=== PATIENT | male | born 1965 | race African-American/Black ===

== ENCOUNTER 2016-06-28 10:21 | Observation (INO) | payer OTHER ==
[~2016-06-28] VITALS: Ht 175.3 cm; Wt 82.0 kg
[~2016-06-28 10:21] MED LIST: ASPIR-LOW81 MG PO; ATORVASTATIN CA40 MG PO; BACLOFEN10 MG PO; BUSPIRONE HCL10 MG PO; CYMBALTA20 MG PO; CYMBALTA60 MG PO; DAILY VALUE1 EACH PO; FLONASE16 G1 BOTH NARES; HYDROCODON-ACE1 EAC5 PO; IRON18 MG PO; IRON325 MG PO; KLONOPIN0.5 M1 PO; KLONOPIN1 MG PO; LEXAPRO10 MG PO; LOPRESSOR25 MG GT; LYRICA100 MG PO; LYRICA300 MG PO; MOBIC15 MG PO; MOBIC7.5 MG PO; NORCO 10/3251 TABLET PO; OPANA ER10 MG PO; OPANA ER5 MG PO; PRILOSEC OTC20 MG PO; REBIF44 MCG/0.5 IJ; TYLENOL PM1 CAPLET PO; XARELTO15 MG PO; XARELTO20 MG PO; ZOHYDRO ER10 M1 PO
[2016-06-28 11:18] LABS: EOSINOPHIL (%) 1.1 % (0-5); EOSINOPHIL COUNT 0.1 K/uL (0-0.3); HEMATOCRIT 37.9 % (38.0-50.0); IMMATURE GRANULOCYTE (%) 0.2 % (0.0-0.7); INSTRUMENT ABS NEUTROPHIL CT 2.5 K/uL; LYMPHOCYTE COUNT 3.6 K/uL (1.0-2.8); MCH 31.5 PG (29.0-34.0); MCV 95.5 FL (86-99); MEAN PLAT.VOLUME 10.5 uM^3 (9.0-12.4); MONOCYTE (%) 4.3 % (3-12); MONOCYTE COUNT 0.3 K/uL (0-0.8); NEUTROPHIL (%) 37.7 % (45-76); NEUTROPHIL COUNT 2.5 K/uL (1.8-6.4); PLATELET COUNT 245 K/uL (156-360); RBC DIS.WIDTH-CV 13.1 % (11.8-14.6); RBC DIS.WIDTH-SD 46.5 % (39-53); RED BLOOD COUNT 3.97 M/uL (4.00-5.50); WHITE BLOOD COUNT 6.5 K/uL (4.1-10.2)
[2016-06-28 11:29] LABS: D-DIMER ELISA 0.21 mg/L FEU (< 0.57)
[2016-06-28 11:32] LABS: CHLORIDE 108 mEq/L (99-109); POTASSIUM 5.1 mEq/L (3.7-5.4); SODIUM 139 mEq/L (136-147)
[2016-06-28 11:34] LABS: GLUCOSE 81 mg/dL (70-99)
[2016-06-28 11:35] LABS: ANION GAP 9 MEQ/L (2-14)
[2016-06-28 11:36] LABS: TOTAL BILIRUBIN 0.4 mg/dL (0.0-1.0)
[2016-06-28 11:38] LABS: ALKALINE PHOSPHATASE 45 IU/L (3-129); GFR ESTIMATE (CALCULATED) > 59 mL/min/
[2016-06-28 11:39] LABS: TROP-I INTERPRETATION NEGATIVE; TROPONIN-I < 0.01 ng/mL (0.0-0.30)
[2016-06-28 11:39] LABS: UREA NITROGEN (BUN) 12 mg/dL (9-23)
[2016-06-28] MEDS ORDERED: LO-DOSE ASPIRIN81 M2 PO (14:56)
[2016-06-28] MEDS ORDERED: ERGOCALCIF50000 UNIT PO (14:57)
[2016-06-28] MEDS ORDERED: FOLIC ACID1 MG PO (14:58)
[2016-06-28 17:12] LABS: TROP-I INTERPRETATION NEGATIVE; TROPONIN-I < 0.01 ng/mL (0.0-0.30)
[2016-06-28 17:19] VITALS: BP 161/86
[2016-06-28 20:00] VITALS: BP 109/60
[2016-06-28 20:19] LABS: METH RESISTANT S AUREUS PCR NEGATIVE (NEGATIVE); PROBE CHECK PASS; SPECIMEN PROCESSING CONTROL PASS
[2016-06-28 22:32] LABS: TROP-I INTERPRETATION NEGATIVE; TROPONIN-I < 0.01 ng/mL (0.0-0.30)
[2016-06-28 23:30] VITALS: BP 121/69
[2016-06-29 05:00] VITALS: BP 140/75
[2016-06-29 05:22] LABS: HEMATOCRIT 37.8 % (38.0-50.0); MCH 31.1 PG (29.0-34.0); MCHC 32.5 G/DL (30.0-36.0); MCV 95.5 FL (86-99); MEAN PLAT.VOLUME 10.5 uM^3 (9.0-12.4); PLATELET COUNT 223 K/uL (156-360); RBC DIS.WIDTH-CV 13.1 % (11.8-14.6); RBC DIS.WIDTH-SD 46.2 % (39-53); RED BLOOD COUNT 3.96 M/uL (4.00-5.50); WHITE BLOOD COUNT 6.6 K/uL (4.1-10.2)
[2016-06-29 05:51] LABS: ANION GAP 5 MEQ/L (2-14); CHLORIDE 108 MEQ/L (99-109); GFR ESTIMATE (CALCULATED) > 59 mL/min/; GLUCOSE 88 mg/dL (70-99); POTASSIUM 4.1 MEQ/L (3.7-5.4); SAMPLE HEMOLYSIS CHECK 0; SAMPLE ICTERIC CHECK 0; SAMPLE LIPEMIA CHECK 0; SODIUM 139 MEQ/L (136-147); UREA NITROGEN (BUN) 16 mg/dL (9-23)
[2016-06-29 08:12] VITALS: BP 136/83
[2016-06-29 08:22] VITALS: BP 136/83
== END 2016-06-29 08:45 | disposition home or self-care (01) ==
LOC: EME → EDBD 10:21 → EME 10:21 → 5WEST 15:15 → EDOF 15:15 → 5WEST 17:09
PROVIDERS: Emergency Medicine; Internal Medicine
DX: R07.9 Chest pain, unspecified (principal); I25.2 Old myocardial infarction; I10 Essential (primary) hypertension; E78.5 Hyperlipidemia, unspecified; I25.10 Atherosclerotic heart disease of native coronary artery without angina pectoris; R00.1 Bradycardia, unspecified; J45.909 Unspecified asthma, uncomplicated; G89.29 Other chronic pain; G35 Multiple sclerosis; Z96.641 Presence of right artificial hip joint; F17.210 Nicotine dependence, cigarettes, uncomplicated; Z86.74 Personal history of sudden cardiac arrest
CPT/HCPCS: 71010; 80048; 80053; 83880; 84484; 85025; 85027; 85379; 87641; 93005; 99281; 99285; G0378

== ENCOUNTER 2017-02-20 06:58 | Emergency (ER) | payer OTHER ==
[~2017-02-20] VITALS: Ht 175.3 cm; Wt 79.2 kg
[~2017-02-20 06:58] MED LIST changes: +ERGOCALCIF50000 UNIT PO; +FOLIC ACID1 MG PO; +LO-DOSE ASPIRIN81 M2 PO
[2017-02-20 07:03] VITALS: BP 105/64
[2017-02-20] MEDS ORDERED: AMOXICILLIN500 MG PO (10:29)
== END 2017-02-20 10:34 | disposition home or self-care (01) ==
LOC: EME 06:58
DX: S20.229A Contusion of unspecified back wall of thorax, initial encounter (principal); J32.9 Chronic sinusitis, unspecified; M54.2 Cervicalgia; V49.40XA Driver injured in collision with unspecified motor vehicles in traffic accident, initial encounter; Y92.410 Unspecified street and highway as the place of occurrence of the external cause; G35 Multiple sclerosis
CPT/HCPCS: 70450; 72100; 72125; 99281; 99283